=== PATIENT | male | born 1965 | race Caucasian/White ===

== ENCOUNTER 2022-01-30 18:14 | Inpatient (IN) | payer OTHER ==
[~2022-01-30] VITALS: Ht 172.7 cm; Wt 105.3 kg
[2022-01-30] MEDS ORDERED: ASPIRIN 325MG EC TABLET PO ONE (18:45)
[2022-01-30 19:02] LABS: BASOPHILS % 0.8 % (0.0-2.0); EOSINOPHILS % 2.8 % (0.0-5.0); HEMATOCRIT. 41.1 % (42.0-52.0); HEMOGLOBIN. 13.8 g/dL (14.0-18.0); LYMPHOCYTES % 31.5 % (20.0-50.0); MEAN CORPUSCULAR HEMOGLOBIN 28.6 pg (28.0-32.0); MEAN CORPUSCULAR VOLUME 85.1 fL (80.0-94.0); MONOCYTES % 11.1 % (2.0-8.0); NEUTROPHILS % 53.8 % (40.0-76.0); PLATELET 185 x1000/uL (130-400); RED BLOOD CELL COUNT 4.83 mill/uL (4.7-6.1); RED CELL DISTRIBUTION WIDTH 13.2 % (11.6-14.6)
[2022-01-30 19:08] LABS: CHLORIDE 105 mEq/L (98-107)
[2022-01-30] MEDS ORDERED: IOHEXOL-350 100 ML BOTTLE ONE (19:11)
[2022-01-30 19:12] LABS: ETHANOL BLOOD < 10 mg/dL
[2022-01-30 19:14] LABS: PHOSPHORUS 3.5 mg/dL (2.5-4.9)
[2022-01-30] MEDS ORDERED: ATORVASTATIN CALCIUM 40MG TABLET PO SCH (21:00)
[2022-01-31] MEDS ORDERED: ACETAMINOPHEN 325MG TABLET PO PRN (02:30)
[2022-01-31] MEDS ORDERED: MAGNESIUM/ALUMINUM HYDROXIDE/SIMETHICONE 30ML UDC PO PRN (02:30)
[2022-01-31] MEDS ORDERED: HYDROCODONE/ACETAMINOPHEN 5/325MG TABLET PO PRN (02:30)
[2022-01-31] MEDS ORDERED: DOCUSATE SODIUM 100MG CAPSULE PO PRN (02:30)
[2022-01-31] MEDS ORDERED: CLONIDINE 0.1MG TABLET PO PRN (02:30)
[2022-01-31] MEDS ORDERED: ONDANSETRON HCL 4MG/2ML INJ IV PRN (02:30)
[2022-01-31] MEDS: AMLODIPINE 10MG TABLET PO SCH ×2 (03:35→08:49)
[2022-01-31 04:00] VITALS: BP 138/86
[2022-01-31] MEDS ORDERED: LOSA50TA41 MT (06:09)
[2022-01-31] MEDS ORDERED: ALPR-340 PO (06:09)
[2022-01-31] MEDS ORDERED: AMLO10TA80 MT (06:09)
[2022-01-31 08:00] VITALS: BP 111/71
[2022-01-31] MEDS ORDERED: ASPIRIN 81MG EC TABLET PO SCH (09:00)
[2022-01-31] MEDS ORDERED: ALPRAZOLAM 0.5 MG TABLET PO PRN (09:30)
[2022-01-31 12:00] VITALS: BP 117/75
[2022-01-31 13:31] VITALS: BP 125/59
[2022-01-31 13:50] VITALS: BP 125/59
[2022-01-31 16:00] VITALS: BP 114/73
== END 2022-01-31 16:30 | disposition home or self-care (01) | DRG 47 ==
LOC: ER 18:14 → MICUSO 22:57 → 5WST 01-31 04:19
PROVIDERS: ADMIT Hospitalist; ATTEND Hospitalist
DX: G45.9 Transient cerebral ischemic attack, unspecified (principal); I10 Essential (primary) hypertension; I16.0 Hypertensive urgency; R29.810 Facial weakness; Z82.49 Family history of ischemic heart disease and other diseases of the circulatory system; Z88.0 Allergy status to penicillin; Z79.899 Other long term (current) drug therapy
CPT/HCPCS: 36415; 70496; 70498; 70551; 71045; 80053; 80320; 83735; 84100; 84484; 85025; 93005; 99291; Q9967; G0480